=== PATIENT | male | born 1980 | race Caucasian/White ===

== ENCOUNTER 2019-03-08 17:14 | Day surgery (SDC) | payer BC ==
[~2019-03-08] VITALS: Ht 180.3 cm; Wt 95.2 kg
[2019-03-08 17:46] VITALS: BP 156/91; PULSE 51; TEMP 99.3
--- NOTE | 2019-03-08 18:09 | NUR ---
Patient arrived to [facility], for appendectomy. #20 gauge IV started in the right forearm without difficulty. Surgeon, Dr Luoie was here and explained the surgery to the patient. Written consent obtained from the patient. Skin warm and dry. Alert and oriented. No severe acute distress, complaining of nagging pain in the right lower quadrant, declining pain medications at this time.
[2019-03-08] MEDS ORDERED: LEXAPRO 10MG10 MG PO (18:10)
[2019-03-08] MEDS ORDERED: ATARAX 25MG25 MG/TAB PO (18:10)
[2019-03-08 18:28] VITALS: BP 151/94; PULSE 51; TEMP 99.2
--- NOTE | 2019-03-08 19:00 | NUR ---
Patient transported by bed to Surgery, accompanied by Surgery staff for appendectomy by Dr Louie.
--- NOTE | 2019-03-09 00:16 | NUR ---
Pt up to the BR with stand by assist. Strong, steady gait and then back to bed. Request and given [facility] [place] 5/325 for incisional discomfort rated 5-6/10. States he is ready to go to sleep after reading. Call light within reach.
[2019-03-09 03:38] VITALS: BP 107/57; PULSE 40; TEMP 98.8
[2019-03-09 08:18] VITALS: BP 148/76; PULSE 41; TEMP 97.7
--- NOTE | 2019-03-09 11:36 | NUR ---
SW met with the patient to discuss discharge plan. The patient lives alone in [place]. He reports independence with ADLs and does not have any DME. The patient's primary care provider is ENRIQUE Dillard and he receives his medications at [facility]. He reports no difficulties obtaining his meds. The patient states that his next-of-kin and person to contact is his mother, Peggy Mallory (ph#[phone]). The patient plans to return back home upon discharge. No additional needs at this time.
--- NOTE | 2019-03-09 12:11 | NUR ---
Pt diwscharged to home, escorted to entrance, left via private auto.
--- NOTE | 2019-03-09 13:40 | NUR ---
Primary nurse was assisted with [id number] patient care by [employer] student Senait Quinonez and [facility] instructor Mariaelena Victoria RN-BC.
== END 2019-03-09 11:55 | disposition home or self-care (01) ==
LOC: SDCO 17:14 → MEDICAL 17:36 → SDCO 03-09 11:55 → MEDICAL 03-09 11:55
DX: K35.80 Unspecified acute appendicitis (principal); F32.9 Major depressive disorder, single episode, unspecified; F41.9 Anxiety disorder, unspecified
CPT/HCPCS: A4216; J0696; J1100; J1885; J2405; J2704; J2710; J3010; J7120

== ENCOUNTER → 2019-03-08 | Outpatient (CLI) | payer BC ==
[~2019-03-08] MED LIST: ATARAX 25MG25 MG/TAB PO; LEXAPRO 10MG10 MG PO
== END ==
LOC: COL.RAD 15:31
DX: K35.80 Unspecified acute appendicitis (principal)
CPT/HCPCS: Q9967

== ENCOUNTER → 2019-07-13 | Outpatient (CLI) | payer BC | LOC: COL.RAD 07-06 13:30 | DX: N50.89 Other specified disorders of the male genital organs (principal) ==

== ENCOUNTER 2024-04-10 10:54 | Day surgery (SDC) | payer BC ==
[~2024-04-10] VITALS: Ht 180.3 cm; Wt 113.0 kg
[~2024-04-10 10:54] MED LIST changes: +BUSPAR10 MG PO; +LEXAPRO20 MG PO
[2024-04-10 11:00] VITALS: BP 145/92; PULSE 52; TEMP 98.5
[2024-04-10] MEDS ORDERED: INDERAL 10MG10 MG PO (11:11)
[2024-04-10 12:07] VITALS: BP 145/92; PULSE 52; TEMP 98.2
--- NOTE | 2024-04-10 12:15 | NUR ---
PROCEDURE COMPLETED, HAS ICE PACK OVER SITE, DRESSING ON CHEST IS CLEAN AND DRY. PT UP IN ROOM DRESSED, REVIEWED DISCHARGE INST. WITH PT ON FOLLOWUP APPT, NEW RX TO PHOTOGRAPHIC RESTORER, AND CARE OF SITE WITH VERBAL UNDERSTANDING. 144/91, PULSE 59, PT DISCHARGED AT 1245 AMB. WITH SUPPLIES
[2024-04-10] MEDS ORDERED: CEPHALEXIN500 M1 PO (12:29)
--- NOTE | 2024-04-10 12:50 | NUR ---
PT TOLERATED LOOP INSERTION WELL. PRESSURE HELD TO SITE AND STERILE DRESSING PLACED. ICE PACK TO INSERTION SITE. INSTRUCTIONS REVIEWED, QUESTIONS INVITED. TRANSFER OF CARE REPORT TO OTILIO MOROCHO.
== END 2024-04-10 12:45 | disposition home or self-care (01) ==
LOC: COL.CAR 10:54
DX: R55 Syncope and collapse (principal)
CPT/HCPCS: C1764